=== PATIENT | male | born 2000 ===

== ENCOUNTER 2019-01-03 12:39 | Emergency (ER) | payer OTHER ==
[2019-01-03 13:45] VITALS: BP 126/70
--- NOTE | 2019-01-03 14:26 | UC ---
Respiratory Complaint HPI - HPI Summary HPI Summary: 18 y/o male presents to the urgent care c/o nasal congestion w/ green nasal drainage, productive cough and moderated PND, sinus pain and pressure for the past 4 weeks. Symptoms has worsen for the past week. He has taken OTC medication w/o any improvement. He also c/o at times he epigastrc abdominal pain which worsens when he stays w/o eating for a long period of time. No epigastic pain today. Sinus pain is 4/10. Pt denies fever, BRAN, rash, SOB, chest pain, abdominal pain, N/V/D, travel outside the country. - History of Current Complaint Chief Complaint: UCRespiratory Stated Complaint: URI Time Seen by Provider: 01/03/19 14:25 Hx Obtained From: Patient Onset/Duration: Gradual Onset, Lasting Weeks - 4 weeks, Still Present, Worse Since - last week Timing: Intermittent Episodes Severity Initially: Mild Severity Currently: Moderate Pain Intensity: 4 - sinus pain Pain Scale Used: 0-10 Numeric Character: Cough: Productive, Sputum Description: - yellowish Alleviating Factors: OTC Meds Associated Signs And Symptoms: Positive: URI, Nasal Congestion, Sinus Discomfort. Negative: Fever, Wheezing - Risk Factors Pulmonary Embolism Risk Factors: Negative Cardiac Risk Factors: Negative Pseudomonas Risk Factors: Negative Tuberculosis Risk Factors: Negative - Allergies/Home Medications Allergies/Adverse Reactions: Allergies Allergy/AdvReac Type Severity Reaction Status Date / Time aspirin Allergy Altered Verified 01/03/19 13:44 Mental Status PMH/Surg Hx/FS Hx/Imm Hx Previously Healthy: Yes - Pt denies PMHX - Surgical History Surgical History: None - Family History Known Family History: Positive: None - Pt denies FMHX - Social History Occupation: Student Lives: With Family Alcohol Use: Occasionally Substance Use Type: None Smoking Status (MU): Never Smoked Tobacco - Immunization History Vaccination Up to Date: Yes Review of Systems All Other Systems Reviewed And Are Negative: Yes Constitutional: Positive: Negative Skin: Positive: Negative Eyes: Positive: Negative ENT: Positive: Nasal Discharge - yellowish and green at times, Sinus Congestion , Sinus Pain/Tenderness, Other - a lot yellowish PND Respiratory: Positive: Cough - productive Cardiovascular: Positive: Negative Gastrointestinal: Positive: Abdominal Pain - epigastric abdominal pain at times , no today Genitourinary: Positive: Negative Motor: Positive: Negative Neurovascular: Positive: Negative Musculoskeletal: Positive: Negative Neurological: Positive: Negative Psychological: Positive: Negative Is Patient Immunocompromised?: No Physical Exam - Summary Physical Exam Summary: Vital Signs Reviewed: Yes General:Patient is a well developed and nourished male who is sitting comfortable in the examining table. Patient is not in any acute respiratory distress. Eyes: Positive: Conjunctiva Clear - PERRLA, EOMI, fundi grossly normal ENT: Positive: Normal ENT inspection, Hearing grossly normal, Pharynx normal, TMs normal.Positive tenderness over the frontal and maxillary sinuses.. Nose: edematous and erythematous nasal mucosa with with yellowish discharge and erythematous mucosa. Pharynx with erythema, no exudate. Neck: Positive: Supple, Nontender, No Lymphadenopathy Respiratory: Positive: Chest non-tender, Lungs clear, Normal breath sounds, No respiratory distress Cardiovascular: Positive: RRR,S1 and S2 present, No Murmur, Pulses Normal, Brisk Capillary Refill Abdomen Description: Positive: Nontender, Other: - Abd: Flat with no distention. No surface trauma, scars, incisions. hyperactive bowel sounds present in all four quadrants. No tenderness, guarding, rigidity to palpation. No masses palpated, no pulsation in epigastric area. Mild tenderness on deep palpation over the epigastri area. No organomegaly. Negative [place] signs. No periumbilical tenderness. No rebound in the lower quadrants. NT over McBurneys point. Good femoral pulses bilaterally. No hernia noted. No CVAT bilaterally Musculoskeletal: Positive: Strength Intact, ROM Intact, No Edema,FROM in all major joints, no edema, no cyanosis or clubbing. Neuro: Alert and oriented x 3. No acute neurological deficits. Speech is normal. Psychological: WNL Skin: Dry and warm Triage Information Reviewed: Yes Vital Signs: Initial Vital Signs Temp 97.5 F 01/03/19 13:40 Pulse 62 01/03/19 13:40 Resp 18 01/03/19 13:40 BP 126/70 01/03/19 13:40 Pulse Ox 100 01/03/19 13:40 Respiratory Course/Dx - Course Course Of Treatment: 18 y/o male presents to the urgent care c/o nasal congestion w/ green nasal drainage, productive cough and moderated PND, sinus pain and pressure for the past 4 weeks. Symptoms has worsen for the past week. He has taken OTC medication w/o any improvement. He also c/o at times he epigastrc abdominal pain which worsens when he stays w/o eating for a long period of time. No epigastic pain today. Sainus pain is 4/10. Pt denies fever, BRAN, rash, SOB, chest pain, abdominal pain, N/V/D, travel outside the country. Hx obtained.Pt w/ acute bacterial siusitis and possible GERD on examination. Pt with 4 weeks of symptoms getting worse. Pt Rx Amoxicillin PO and flonase nasal spray. Omeprazole PO to alleviate symptoms and advised on dieatry modification and to avoid drinking alcohol and if not improvment of symptoms f/u w/ his PCP or GI Dr Davidson for fruther evalaution and treatment.Discharge instructions explained to Pt. Pt understood and agreed with plan of care. - Differential Dx/Diagnosis Differential Diagnosis/HQI/PQRI: Bronchitis, Laryngitis, Lower Resp Infection, Sinusitis, Other - pneumonia. Gastritis, GERD Provider Diagnosis: Acute bacterial sinusitis, GERD (gastroesophageal reflux disease) Discharge - Sign-Out/Discharge Documenting (check all that apply): Patient Departure - d/c home All imaging exams completed and their final reports reviewed: No Studies - Discharge Plan Condition: Stable Disposition: HOME Prescriptions: Amoxicillin PO (*) [Amoxicillin 875 MG (*)] 875 mg PO BID #10 tab Fluticasone NASAL SPRAY 50MCG* [Flonase NASAL SPRAY 50MCG*] 2 spray BOTH NARES DAILY #1 btl Omeprazole CAP (NF) [Prilosec CAP* 20 MG] 20 mg PO DAILY #30 cap. Patient Education Materials: Sinusitis (ED), Gastroesophageal Reflux Disease ( ED) Referrals: [facility] [place] [facility] [Outside] - 3 Days Codey Rogers MD [Medical Doctor] - If Needed Additional Instructions: 1- Please take Omeprazole PO as directed to alleviate symptoms. Avoid spicy food , chocolates, citric fruits, tomato sauce, etc. Avoid long periods of time w/o eating. increase fluid and eat soft meals until symptoms improve. 2- If you develops fever or severe abdominal pain, vomiting please go to the ER, for further treatment. Otherwise f/u with your PCP or [facility] Rogers in 1 week if not improvement of symptoms for further management. 3- Please increase fluid intake and rest. take full course of antibiotic to avoid resistance 4-Use Flonase as directed to help drain fluid. Also buy saline drops to clear sinuses 5-Return to the clinic or PCP if symptoms do not improve for further management and treatment - Billing Disposition and Condition Condition: STABLE Disposition: Home UC Diagnostic Eval (inactive) - Laboratory O2 Sat by Pulse Oximetry: 100
== END 2019-01-03 15:01 | disposition home or self-care (01) ==
LOC: UCEAST 12:39
DX: J32.8 Other chronic sinusitis (principal); K21.9 Gastro-esophageal reflux disease without esophagitis; Z88.8 Allergy status to other drugs, medicaments and biological substances
CPT/HCPCS: 99202; G0463